=== PATIENT | male | born 1995 | race Caucasian/White ===

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

== ENCOUNTER 2020-10-13 07:11 | Emergency (ER) | payer BC, MEDICAID ==
--- NOTE | 2020-10-13 07:15 | ERPHSYRPT ---
- History of Present Illness Time Seen by Provider: 10/13/20 07:15 Historian: patient Exam Limitations: no limitations Physician History: This is a 25-year-old white male whose had no prior abdominal surgeries and presents with sudden onset of nausea vomiting diarrhea with associated right upper quadrant abdominal pain and right flank pain. Patient has been vomiting s jenae 1:00 this morning and he is now dry heaving. Patient states he is never had pain quite like this in the past. He has had no fevers. He has no shortness of breath. He denies chest pain. There are other individuals in the family with similar but much milder symptoms over the last week. Patient takes no medications chronically and has no known drug allergies. Timing/Duration: today Activities at Onset: none Quality: cramping Abdominal Pain Onset Location: RUQ, flank (Right) Pain Radiation: no radiation Severity of Pain-Max: mild Severity of Pain-Current: mild Modifying Factors: Improves With: vomiting Associated Symptoms: diarrhea, loss of appetite, nausea, vomiting, weakness, No chest pain, No shortness of breath Previous symptoms: no prior history Allergies/Adverse Reactions: No Known Drug Allergies Allergy (Verified 10/13/20 07:27) Home Medications: Venlafaxine HCl ER 75 mg [Effexor XR 75 MG] 75 mg PO DAILY 10/13/20 [History] Hx Tetanus, Diphtheria Vaccination/Date Given: No Hx Influenza Vaccination/Date Given: Yes Hx Pneumococcal Vaccination/Date Given: No Travel Risk - International Travel Have you traveled outside of the country in past 3 weeks: No - Coronavirus Screening Are you exhibiting any of the following symptoms?: No Close contact with a COVID-19 positive Pt in past 14-21 Days: No - Review of Systems Constitutional: No Symptoms Eyes: No Symptoms Ears, Nose, & Throat: No Symptoms Respiratory: No Symptoms Cardiac: No Symptoms Abdominal/Gastrointestinal: Abdominal Pain, Nausea, Vomiting, Diarrhea Genitourinary Symptoms: No Symptoms Musculoskeletal: No Symptoms Skin: No Symptoms Neurological: No Symptoms Psychological: No Symptoms Endocrine: No Symptoms Hematologic/Lymphatic: No Symptoms Immunological/Allergic: No Symptoms All Other Systems: Reviewed and Negative - Past Medical History Pertinent Past Medical History: Yes Neurological History: Other ENT History: No Pertinent History Cardiac History: Arrhythmia, Other Respiratory History: No Pertinent History Endocrine Medical History: No Pertinent History Musculoskeletal History: No Pertinent History GI Medical History: No Pertinent History History: No Pertinent History Psycho-Social History: No Pertinent History Male Reproductive Disorders: No Pertinent History Other Medical History: MVP. Hx Concussion - Past Surgical History Past Surgical History: Yes Neuro Surgical History: No Pertinent History Cardiac: No Pertinent History Respiratory: No Pertinent History Gastrointestinal: No Pertinent History Genitourinary: No Pertinent History Musculoskeletal: No Pertinent History Male Surgical History: No Pertinent History Other Surgical History: T&A - Social History Smoking Status: Never smoker Exposure to second hand smoke: No Drug Use: none Patient Lives Alone: No - Nursing Vital Signs Nursing Vital Signs: Initial Vital Signs Temperature 99.2 F 10/13/20 07:15 Pulse Rate 80 10/13/20 07:15 Blood Pressure 117/67 10/13/20 07:15 O2 Sat by Pulse Oximetry 96 10/13/20 07:15 Pain Scale Pain Intensity 7 - Physical Exam General Appearance: no apparent distress, alert, anxiety Eye Exam: PERRL/EOMI, eyes nml inspection Ears, Nose, Throat Exam: normal ENT inspection, moist mucous membranes Neck Exam: normal inspection, non-tender, supple, full range of motion Respiratory Exam: normal breath sounds, lungs clear, airway intact, No chest tenderness, No respiratory distress Cardiovascular Exam: regular rate/rhythm, normal heart sounds, normal peripheral pulses Gastrointestinal/Abdomen Exam: soft, normal bowel sounds, tenderness (Mild right upper quadrant), guarding, No rebound Rectal Exam: not done Back Exam: normal inspection, normal range of motion, No CVA tenderness, No vertebral tenderness Extremity Exam: normal inspection, normal range of motion, pelvis stable Neurologic Exam: alert, oriented x 3, cooperative, costumer II-XII nml as tested, normal mood/affect, nml cerebellar function, nml station & gait, sensation nml Skin Exam: normal color, warm, dry Lymphatic Exam: No adenopathy SpO2 Interpretation: normal O2 Delivery: Room Air - Course Nursing assessment & vital signs reviewed: Yes Ordered Tests: Active Orders 24 hr Category Date Time Status Clean Catch Urine Specimen STAT Care 10/13/20 07:37 Active IV Insertion STAT Care 10/13/20 07:37 Active ABDOMEN AND PELVIS W/0 CONTRAS [CT] Stat Exams 10/13/20 07:39 Completed AMYLASE Stat Lab 10/13/20 07:50 Completed CBC W DIFF Stat Lab 10/13/20 07:50 Completed CMP Stat Lab 10/13/20 07:50 Completed LIPASE Stat Lab 10/13/20 07:50 Completed Lactic Acid Stat Lab 10/13/20 07:37 Completed MAG [MAGNESIUM] Stat Lab 10/13/20 07:50 Completed UA W/RFX UR CULTURE Stat Lab 10/13/20 07:56 Completed Urine Triage Profile Stat Lab 10/13/20 07:56 Ordered Medication Summary Generic Name Dose Route Start Last Admin Trade Name Freq PRN Reason Stop Dose Admin Sodium Chloride 1,000 mls @ 999 mls/hr 10/13/20 08:22 10/13/20 08:25 Sodium Chloride 0.9% 1000 Ml IV 10/13/20 09:22 999 mls/hr .Q1H1M STA Administration Discontinued Medications Generic Name Dose Route Start Last Admin Trade Name Freq PRN Reason Stop Dose Admin Sodium Chloride 1,000 mls @ 999 mls/hr 10/13/20 07:37 10/13/20 08:45 Sodium Chloride 0.9% 1000 Ml IV 10/13/20 08:37 Infused .Q1H1M STA Infusion Sodium Chloride Confirm 10/13/20 07:41 Sodium Chloride 0.9% 1000 Ml Administered 10/13/20 07:42 Dose 1,000 mls @ ud .ROUTE .STK-MED ONE Sodium Chloride Confirm 10/13/20 08:24 Sodium Chloride 0.9% 1000 Ml Administered 10/13/20 08:25 Dose 1,000 mls @ ud .ROUTE .STK-MED ONE Ondansetron HCl 4 mg 10/13/20 07:37 10/13/20 07:42 Zofran 4 Mg/2 Ml Vial IV 10/13/20 07:38 4 mg STAT ONE Administration Ondansetron HCl Confirm 10/13/20 07:41 Zofran 4 Mg/2 Ml Vial Administered 10/13/20 07:42 Dose 4 mg .ROUTE .STK-MED ONE Lab/Rad Data: Laboratory Result Diagrams 10/13/20 07:50 10/13/20 07:50 Laboratory Results 10/13/20 10/13/20 10/13/20 Range/Units 07:56 07:50 07:50 WBC (4.0-10.5) K/mm3 RBC (4.1-5.6) M/mm3 Hgb (12.5-18.0) gm/dl Hct (42-50) % MCV (78-100) fl MCH (26-32) pg MCHC (32-36) g/dl RDW (11.5-14.0) % Plt Count (150-450) K/mm3 MPV (7.5-11.0) fl Gran % (36.0-66.0) % Eos # (Auto) (0-0.5) Absolute Lymphs (auto) (1.0-4.6) Absolute Monos (auto) (0.0-1.3) Lymphocytes % (24.0-44.0) % Monocytes % (0.0-12.0) % Eosinophils % (0.00-5.0) % Basophils % (0.0-0.4) % Absolute Granulocytes (1.4-6.9) Basophils # (0-0.4) Sodium 139 (137-145) mmol/L Potassium 4.2 (3.5-5.1) mmol/L Chloride 104 (98-107) mmol/L Carbon Dioxide 24 (22-30) mmol/L Anion Gap 14.6 (5-15) MEQ/L BUN 19 (9-20) mg/dL Creatinine 1.01 (0.66-1.25) mg/dL Estimated GFR > 60.0 ML/MIN Glucose 124 H (74-106) mg/dL Lactic Acid (0.4-2.0) Calcium 9.9 (8.4-10.2) mg/dL Magnesium 1.7 (1.6-2.3) mg/dL Total Bilirubin 1.40 H (0.2-1.3) mg/dL AST 24 (17-59) U/L ALT 16 (0-50) U/L Alkaline Phosphatase 49 (38-126) U/L Serum Total Protein 8.1 (6.3-8.2) g/dL Albumin 4.9 (3.5-5.0) g/dL Amylase 63 (30-110) U/L Lipase 42 (23-300) U/L Urine Color [place] (YELLOW) Urine Appearance SLIGHTLY CLOUDY (CLEAR) Urine pH 7.0 (5-6) Ur Specific [place] 1.030 (1.005-1.025) Urine Protein 100 (Negative) Urine Ketones SMALL (NEGATIVE) Urine Blood NEGATIVE (0-5) Ollie/ul Urine Nitrite NEGATIVE (NEGATIVE) Urine Bilirubin NEGATIVE (NEGATIVE) Urine Urobilinogen 2 (0-1) mg/dL Ur Leukocyte Esterase NEGATIVE (NEGATIVE) Urine WBC (Auto) 0-2 (0-5) /HPF Urine RBC (Auto) 0-2 (0-2) /HPF U Epithel Cells (Auto) NONE (FEW) /HPF Urine Bacteria (Auto) RARE (NEGATIVE) /HPF Urine Mucus (Auto) SLIGHT (NEGATIVE) /HPF Urine Culture Reflexed NO (NO) Urine Glucose NEGATIVE (NEGATIVE) mg/dL 10/13/20 10/13/20 Range/Units 07:50 07:37 WBC 14.1 H (4.0-10.5) K/mm3 RBC 5.40 (4.1-5.6) M/mm3 Hgb 16.9 (12.5-18.0) gm/dl Hct 48.2 (42-50) % MCV 89.3 (78-100) fl MCH 31.3 (26-32) pg MCHC 35.1 (32-36) g/dl RDW 12.9 (11.5-14.0) % Plt Count 214 (150-450) K/mm3 MPV 9.7 (7.5-11.0) fl Gran % 90.8 H (36.0-66.0) % Eos # (Auto) 0.02 (0-0.5) Absolute Lymphs (auto) 0.43 L (1.0-4.6) Absolute Monos (auto) 0.84 (0.0-1.3) Lymphocytes % 3.0 L (24.0-44.0) % Monocytes % 6.0 (0.0-12.0) % Eosinophils % 0.1 (0.00-5.0) % Basophils % 0.1 (0.0-0.4) % Absolute Granulocytes 12.79 H (1.4-6.9) Basophils # 0.02 (0-0.4) Sodium (137-145) mmol/L Potassium (3.5-5.1) mmol/L Chloride (98-107) mmol/L Carbon Dioxide (22-30) mmol/L Anion Gap (5-15) MEQ/L BUN (9-20) mg/dL Creatinine (0.66-1.25) mg/dL Estimated GFR ML/MIN Glucose (74-106) mg/dL Lactic Acid 1.3 (0.4-2.0) Calcium (8.4-10.2) mg/dL Magnesium (1.6-2.3) mg/dL Total Bilirubin (0.2-1.3) mg/dL AST (17-59) U/L ALT (0-50) U/L Alkaline Phosphatase (38-126) U/L Serum Total Protein (6.3-8.2) g/dL Albumin (3.5-5.0) g/dL Amylase (30-110) U/L Lipase (23-300) U/L Urine Color (YELLOW) Urine Appearance (CLEAR) Urine pH (5-6) Ur Specific [place] (1.005-1.025) Urine Protein (Negative) Urine Ketones (NEGATIVE) Urine Blood (0-5) Ollie/ul Urine Nitrite (NEGATIVE) Urine Bilirubin (NEGATIVE) Urine Urobilinogen (0-1) mg/dL Ur Leukocyte Esterase (NEGATIVE) Urine WBC (Auto) (0-5) /HPF Urine RBC (Auto) (0-2) /HPF U Epithel Cells (Auto) (FEW) /HPF Urine Bacteria (Auto) (NEGATIVE) /HPF Urine Mucus (Auto) (NEGATIVE) /HPF Urine Culture Reflexed (NO) Urine Glucose (NEGATIVE) mg/dL - Progress Progress: improved, re-examined Progress Note: 10/13/20 08:51 CAT scan of the abdomen pelvis without contrast shows no acute intra-abdominal or intrapelvic process. Counseled pt/family regarding: lab results, diagnosis, need for follow-up, rad results - Departure Departure Disposition: Home Clinical Impression: Nausea vomiting and diarrhea Condition: Stable Critical Care Time: No Referrals: INGRIS DUEÑAS MD [Primary Care Provider] - Additional Instructions: Drink plenty of fluids. Take your medication as prescribed. Follow-up with your primary care physician for persistent symptoms. Prescriptions: Ondansetron ODT 4 MG [Zofran Odt 4 mg] 4 mg PO Q6H PRN PRN #10 tab.rapdis PRN Reason: Vomiting
[2020-10-13] MEDS ORDERED: Sodium Chloride 0.9% 1000 ML 1,000 ML IV STA ×2 (07:37→08:22)
[2020-10-13] MEDS ORDERED: Zofran 4 MG/2 ML VIAL IV ONE (07:37)
[2020-10-13] MEDS ORDERED: Sodium Chloride 0.9% 1000 ML 1,000 ML ONE ×2 (07:41→08:24)
[2020-10-13] MEDS ORDERED: Zofran 4 MG/2 ML VIAL ONE (07:41)
[2020-10-13 07:51] LABS: Absolute Neutrophil Ct (ANC) 12.79 (1.4-6.9); BASOPHIL % 0.1 % (0.0-0.4); Basophil (Absolute #) 0.02 (0-0.4); Eosinophil % 0.1 % (0.00-5.0); Eosinophil (Absolute #) 0.02 (0-0.5); Hematocrit 48.2 % (42-50); Hemoglobin 16.9 gm/dl (12.5-18.0); Lymphocyte (Absolute #) 0.43 (1.0-4.6); Mean Cell Volume 89.3 fl (78-100); Mean Corpuscular Hemoglobin 31.3 pg (26-32); Mean Corpuscular Hgb Concent. 35.1 g/dl (32-36); Mean Platelet Volume 9.7 fl (7.5-11.0); Monocyte (Absolute #) 0.84 (0.0-1.3); Neutrophil % 90.8 % (36.0-66.0); Platelet Count 214 K/mm3 (150-450); Red Cell Distribution Width 12.9 % (11.5-14.0); White Blood Count 14.1 K/mm3 (4.0-10.5)
[2020-10-13 07:56] LABS: ALBUMIN 4.9 g/dL (3.5-5.0); ALKALINE PHOSPHATASE 49 U/L (38-126); AMYLASE 63 U/L (30-110); ANION GAP 14.6 MEQ/L (5-15); BLOOD UREA NITROGEN 19 mg/dL (9-20); CHLORIDE 104 mmol/L (98-107); Calcium 9.9 mg/dL (8.4-10.2); Carbon Dioxide 24 mmol/L (22-30); Creatinine 1 1.01 mg/dL (0.66-1.25); EST GLOMERULAR FILTRATION RATE > 60.0 ML/MIN; Glucose 124 mg/dL (74-106); LIPASE 42 U/L (23-300); Potassium 4.2 mmol/L (3.5-5.1); SGOT/AST 24 U/L (17-59); SGPT/ALT 16 U/L (0-50); SODIUM 139 mmol/L (137-145); Total Protein 8.1 g/dL (6.3-8.2)
[2020-10-13 08:09] LABS: Appearance SLIGHTLY CLOUDY (CLEAR); Bacteria RARE /HPF (NEGATIVE); Bilirubin NEGATIVE (NEGATIVE); Blood NEGATIVE Ery/ul (0-5); Glucose NEGATIVE (NEGATIVE); Ketones SMALL (NEGATIVE); Leukocyte Esterase NEGATIVE (NEGATIVE); Mucus SLIGHT /HPF (NEGATIVE); Nitrite NEGATIVE (NEGATIVE); Protein,Urine Dip 100 (Negative); RBC 0-2 /HPF (0-2); Urobilinogen 2 mg/dL (0-1); WBC 0-2 /HPF (0-5)
[2020-10-13 08:18] LABS: Amphetamine,Urine NEGATIVE (NEGATIVE); Barbiturate,Urine NEGATIVE (NEGATIVE); Benzodiazepine,Urine NEGATIVE (NEGATIVE); Cocaine,Urine NEGATIVE (NEGATIVE); Methadone,Urine NEGATIVE (NEGATIVE); Opiate,Urine NEGATIVE (NEGATIVE); PCP,Urine NEGATIVE (NEGATIVE); THC,Urine NEGATIVE (NEGATIVE)
--- NOTE | 2020-10-13 08:43 | XRAY ---
Indication: Right abdomen pain, nausea, vomiting, and diarrhea. Multiple contiguous axial images obtained through the abdomen and pelvis without contrast. Comparison: June 11, 2016. Lung bases clear. Heart not enlarged. Noncontrasted stomach and bowel loops nonobstructed. Appendix not seen. No free fluid/air. Remaining liver, gallbladder, pancreas, spleen, adrenal glands, kidneys, ureters, bladder, and aorta are unremarkable for noncontrast exam. Osseous structures intact. No ventral or inguinal hernias. Impression: Continued negative CT abdomen/pelvis without contrast exam.
[2020-10-13 10:04] VITALS: BP 109/58; PULSE 72; O2SAT 98
[2020-10-13 16:13] LABS: Slide Review 1 YES
== END 2020-10-13 10:34 | disposition home or self-care (01) ==
LOC: ED 07:11
DX: R11.2 Nausea with vomiting, unspecified (principal); R19.7 Diarrhea, unspecified
CPT/HCPCS: 36000; 36415; 74176; 80053; 80307; 81001; 82150; 83605; 83690; 83735; 85025; 96360; 96361; 96374; 99284; J2405